=== PATIENT | male | born 1980 | race Two or more races ===

== ENCOUNTER 2022-06-04 11:15 | Inpatient (IN) | payer OTHER ==
[~2022-06-04] VITALS: Ht 188 cm; Wt 190.5 kg
[2022-06-04] MEDS ORDERED: ALDACTONE25 MG PO (11:48)
[2022-06-04] MEDS ORDERED: AVAPRO300 MG PO (11:48)
[2022-06-04] MEDS ORDERED: JARDIANCE10 MG PO (11:49)
--- NOTE | 2022-06-04 11:56 | NUR ---
SE RECIBE MASCULINO ALERTA Y ORIENTADO X3 QUIEN REFIERE DESDE ANOCHE DOLOR EN PIERNA IZQUIERDA Y FIEBRE. TEMP 103.9 SE ADMINISTRA 1000MG DE TYLENOL. SE UBICA EN MANAS DE ESPERA PEND A EVALUACION MEDICA.
--- NOTE | 2022-06-04 13:01 | NUR ---
SE LE ORIENTA A PTE SOBRE TRATAMIENTO A SEGUIR, EL REFIERE ENTENDER. SE LE COLECTA MUESTRAS GENEVA ORDEN MEDICA.
--- NOTE | 2022-06-04 13:30 | NUR ---
SE LLAMA A DEPARTAMENTO DE LABORATORIO Y SE HABLA CON SOBRE MUESTRAS QUE SE COLECTARON A LAS 1253PM FARHAT EN EL SISTEMA SALE QUE NO ESTA RECIBIDO. EL REFIERE QUE VAN A EMPEZAR A TRABAJARLAS.
--- NOTE | 2022-06-04 19:17 | NUR ---
PTE SE ADM 2 ACETAMINOPHEN DE 500 A LAS 657PM
[2022-06-07] MEDS ORDERED: CHLORTHALIDONE25 MG (11:43)
== END 2022-06-13 17:01 | disposition home or self-care (01) | DRG 638 ==
LOC: ER 11:15 → MEDI 19:50 → MEDJ 06-05 14:23
PROVIDERS: ADMIT Internal Medicine; ATTEND Internal Medicine
PROC: B54CZZZ Ultrasonography of Left Lower Extremity Veins (ICD-10-PCS; principal; 2022-06-04)
DX: E11.628 Type 2 diabetes mellitus with other skin complications (principal); L03.116 Cellulitis of left lower limb; Z68.43 Body mass index [BMI] 50.0-59.9, adult; L08.89 Other specified local infections of the skin and subcutaneous tissue; D72.828 Other elevated white blood cell count; G47.33 Obstructive sleep apnea (adult) (pediatric); I10 Essential (primary) hypertension; E66.01 Morbid (severe) obesity due to excess calories; Z79.4 Long term (current) use of insulin; E11.51 Type 2 diabetes mellitus with diabetic peripheral angiopathy without gangrene

== ENCOUNTER 2022-06-15 11:43 | Emergency (ER) | payer OTHER ==
[~2022-06-15] VITALS: Ht 188 cm; Wt 181.4 kg
[~2022-06-15 11:43] MED LIST: ALDACTONE25 MG PO; AVAPRO300 MG PO; CHLORTHALIDONE25 MG; JARDIANCE10 MG PO
== END 2022-06-15 15:25 | disposition home or self-care (01) ==
LOC: ER 11:43
DX: T78.40XA Allergy, unspecified, initial encounter (principal); L03.116 Cellulitis of left lower limb

== ENCOUNTER 2023-09-19 21:07 | Emergency (ER) | payer OTHER ==
[~2023-09-19] VITALS: Ht 188 cm; Wt 180.1 kg
[2023-09-19] MEDS ORDERED: SPIRONOLACTONE25 MG PO (22:04)
[2023-09-19] MEDS ORDERED: IRBESARTAN300 MG PO (22:04)
[2023-09-19] MEDS ORDERED: HYDROCHLOROTH12.5 MG PO (22:05)
[2023-09-19] MEDS ORDERED: VANCOMYCIN HCL 1,000 MG IV ONE (23:45)
[2023-09-20 00:30] LABS: ERYTHROCYTE SEDIMENTATION RATE 25 mm/hr
[2023-09-20] MEDS ORDERED: VANCOMYCIN HCL 1,000 MG VIAL IV STA (00:30)
[2023-09-20 00:44] LABS: HEMATOCRIT 38.7 % (39.0-48.0); HEMOGLOBIN 12.9 g/dL (13-16.00); MEAN CELL VOLUME 87.5 fL (80.0-100.00); MEAN CORPUSCULAR HEMOGLOBIN 29.3 pg (27.00-32.0); MEAN CORPUSCULAR HGB CONC 33.5 g/dl (32.0-36.0); PLATELET COUNT 156 K/uL (150-450); RED BLOOD COUNT 4.42 M/uL (4.00-6.00); RED CELL DISTRIBUTION WIDTH 13.1 % (11.5-14.5)
[2023-09-20 00:55] LABS: ALBUMIN 3.6 gm/dL (3.4-5.0); BILIRUBIN TOTAL 1.67 mg/dL (0.3-1.2); CREATININE SERUM 1.4 mg/dL (0.70-1.30); GFR 55.31; GLOBULINA 4.3 G/DL (2.4-3.5); POTASSIUM 3.57 mEq/L (3.5-5.1); TOTAL PROTEIN 7.9 gm/dL (6.4-8.2)
[2023-09-20 01:21] LABS: C-REACTIVE PROTEIN 12.7 MG/DL (0.00-0.29)
== END 2023-09-20 06:11 | disposition home or self-care (01) ==
LOC: ER 21:07
PROVIDERS: General Practice
DX: L03.116 Cellulitis of left lower limb (principal); Z88.2 Allergy status to sulfonamides; I10 Essential (primary) hypertension; E11.9 Type 2 diabetes mellitus without complications